=== PATIENT | female | born 1975 | race Caucasian/White ===

== ENCOUNTER 2021-11-09 06:00 | Day surgery (SDC) | payer OTHER, SELFPAY ==
[~2021-11-09] VITALS: Ht 152.4 cm; Wt 68.5 kg
[2021-11-09 07:35] LABS: HCG,QUAL RESULT NEGATIVE (NEGATIVE)
[2021-11-09] MEDS ORDERED: CLINDAMYCIN PHOS 600 MG/ D5W 50 ML PREMIX IV ONE (08:00)
[2021-11-09] MEDS ORDERED: LEVOFLOXACIN IN DEXTROSE 5 % 100 ML IV ONE (08:00)
[2021-11-09] MEDS ORDERED: BUPIVACAINE /PF 0.25% 30 ML VIAL INJ ONE (11:41)
[2021-11-09] MEDS ORDERED: LR 1,000 ML IV.SOLN IV ONE (11:41)
[2021-11-09] MEDS ORDERED: KETOROLAC TROMETHAMINE 30 MG VIAL IVP ONE (11:41)
[2021-11-09] MEDS ORDERED: ONDANSETRON HCL 4 MG/2 ML VIAL IVP ONE (11:41)
[2021-11-09] MEDS ORDERED: NS IRRIG SOLN 1000 ML IR ONE (11:41)
[2021-11-09] MEDS ORDERED: DEXAMETHASONE SOD PHOSPHATE 4 MG/ML VIAL IVP ONE ×2 (11:41)
[2021-11-09] MEDS ORDERED: ACETAMINOPHEN I.V. 1000 MG 100 ML IV ONE (12:11)
[2021-11-09] MEDS ORDERED: LR 1,000 ML IV SCH (12:15)
[2021-11-09] MEDS ORDERED: MIDAZOLAM HCL 2 MG/2 ML VIAL (VERSED) IVP PRN (12:15)
[2021-11-09] MEDS ORDERED: METOCLOPRAMIDE HCL 10 MG/2 ML VIAL IVP PRN (12:15)
[2021-11-09] MEDS ORDERED: LABETALOL 100 MG/ 20ML VIAL IVP PRN (12:15)
[2021-11-09] MEDS ORDERED: HYDROmorphone 1 MG/ML INJ. CARTRIDGE IVP PRN ×2 (12:15)
[2021-11-09] MEDS ORDERED: hydrALAZINE HCL 20 MG/ML VIAL IVP PRN (12:15)
[2021-11-09] MEDS ORDERED: MEPERIDINE HCL/PF 25 MG/ML DISP.SYRIN IVP PRN (12:15)
[2021-11-09] MEDS ORDERED: HYDROcodone/ACETAMIN 5-325 MG TAB (NORCO/ VICODIN) PO PRN ×2 (13:00)
[2021-11-09] MEDS ORDERED: D5/0.45 NS 1,000 ML IV SCH (13:00)
[2021-11-09 14:19] VITALS: BP_SYST 94
== END 2021-11-09 15:50 | disposition home or self-care (01) ==
LOC: SDS 06:00
PROVIDERS: ATTEND Colon & Rectal Surgery
DX: N63.10 Unspecified lump in the right breast, unspecified quadrant (principal); E03.9 Hypothyroidism, unspecified; E78.5 Hyperlipidemia, unspecified; Z88.0 Allergy status to penicillin; Z88.1 Allergy status to other antibiotic agents; Z79.899 Other long term (current) drug therapy; Z20.822 Contact with and (suspected) exposure to COVID-19
CPT/HCPCS: 19281; 19301; 36415; 84703; 87426; 88307; J0131; J1100; J1885; J1956; J2405; J3490 ×2; J7120; U0003